=== PATIENT | male | born 1950 | race Caucasian/White ===

== ENCOUNTER → 2017-07-26 | Outpatient (CLI) | payer MEDICARE ==
[2017-07-26 13:43] LABS: ALT 33 U/L (21-72); AST 24 U/L (17-59); Cholesterol 95 mg/dL (<200); HDL Cholesterol 33 mg/dL (40-60); LDL Cholesterol,Calculated 49 mg/dL (0-99); Triglycerides 67 mg/dL (<150)
== END | disposition home or self-care (01) ==
LOC: LABWHC1 12:52
PROVIDERS: ATTEND Internal Medicine Interventional Cardiology
DX: E78.2 Mixed hyperlipidemia (principal)
CPT/HCPCS: 36415; 80061; 84450; 84460

== ENCOUNTER 2019-04-19 11:39 | Day surgery (SDC) | payer MEDICARE ==
[2019-01-16 09:18] VITALS: BMI 31.0
[~2019-04-19 11:39] MED LIST: LACTATED RINGERS 1,000 ML IV SCH; LIDOCAINE 1% (10MG/ML) FOR IV START INTRADERMA PRN
[2019-04-19 12:02] VITALS: TEMP 97.9
[2019-04-19] MEDS ORDERED: PROPOFOL 10 MG/ML 20 ML VIAL IV ONE (12:23)
--- NOTE | 2019-04-19 12:27 | P.GSHP ---
History of Present Illness H&P Date: 04/19/19 Chief Complaint: Colon cancer screening Patient here today for colonoscopy. Last colonoscopy about 4 years ago. That study showed a small polyp. Biopsies were benign. No adenoma. Patient with no bowel issues. No family history of colon cancer. Past Medical History Past Medical History: Coronary Artery Disease (CAD), Hypertension, Myocardial Infarction ([place]) Additional Past Medical History / Comment(s): Weaned off HTN Rx for few years. Last Myocardial Infarction Date:: 04/2011 History of Any Multi-Drug Resistant Organisms: None Reported Past Surgical History: Appendectomy, Coronary Bypass/CABG, Heart Catheterization, Heart Catheterization With Stent, Tonsillectomy Additional Past Surgical History / Comment(s): Triple CABG 2011, one cardiac stent, Colonoscopy Past Anesthesia/Blood Transfusion Reactions: No Reported Reaction Additional Past Anesthesia/Blood Transfusion Reaction / Comment(s): no family hx Date of Last Stent Placement:: 2011 Smoking Status: Never smoker - Past Family History Mother Family Medical History: Cancer Sister(s) Family Medical History: Cancer Medications and Allergies Home Medications Medication Instructions Recorded Confirmed Type Aspirin [Adult Low Dose Aspirin EC] 81 mg PO DAILY 11/18/15 04/19/19 History Rosuvastatin [Crestor] 5 mg PO DAILY 11/18/15 04/19/19 History Allergies Allergy/AdvReac Type Severity Reaction Status Date / Time No Known Allergies Allergy Verified 04/19/19 12:02 Surgical - Exam Vital Signs Temp Pulse Resp BP Pulse Ox 97.9 F 71 16 152/93 98 04/19/19 12:00 04/19/19 12:00 04/19/19 12:04/19/19 12:04/19/19 12:00 Physical exam: General: Well-developed, well-nourished HEENT: Normocephalic, sclerae nonicteric Abdomen: Nontender, nondistended Extremities: No edema Neuro: Alert and oriented Assessment and Plan (1) Colon cancer screening Narrative/Plan: Will proceed with colonoscopy at this time Current Visit: Yes Status: Acute Code(s): Z12.11 - ENCOUNTER FOR SCREENING FOR MALIGNANT NEOPLASM OF COLON SNOMED Code(s): 950678305
--- NOTE | 2019-04-19 12:43 | P.PCN ---
Date of Procedure: 04/19/19 Procedure(s) Performed: PREOPERATIVE DIAGNOSIS: Colon cancer screening POSTOPERATIVE DIAGNOSIS: Small rectal polyp PROCEDURE: Colonoscopy with cold biopsy ANESTHESIA: MAC SURGEON: Paulo Hughes M.D. SPECIMENS: Rectal polyp ENDOSCOPIC PROCEDURE: The patient was placed on the endoscopy table in the left decubitus position. The Olympus colonoscope was inserted into the anus and passed under direct visualization to the base of the cecum. The appendiceal orifice was visualized. From that point the scope was slowly withdrawn inspecting all surfaces carefully. There were no neoplastic inflammatory or polypoid lesions throughout the cecum, ascending, transverse, descending, and sigmoid colon. In the rectum a small polyp was seen and removed using the cold biopsy forceps. The remainder of the rectum was normal. There is no visible diverticulosis. Digital rectal examination was normal. The patient was taken to the recovery room in stable condition per anesthesia guidelines. RECOMMENDATIONS: Await biopsy results.
[2019-04-19 13:18] VITALS: BP 110/68; PULSE 68; RESP 18
== END 2019-04-19 13:20 | disposition home or self-care (01) ==
LOC: ORWHC2ENDO 11:39
PROVIDERS: ATTEND Surgery
DX: Z12.11 Encounter for screening for malignant neoplasm of colon (principal); D12.8 Benign neoplasm of rectum; I10 Essential (primary) hypertension; I25.10 Atherosclerotic heart disease of native coronary artery without angina pectoris; I25.2 Old myocardial infarction; E78.5 Hyperlipidemia, unspecified; Z86.010 Personal history of colon polyps; Z79.82 Long term (current) use of aspirin; Z79.899 Other long term (current) drug therapy; Z95.1 Presence of aortocoronary bypass graft; Z95.5 Presence of coronary angioplasty implant and graft; Z90.49 Acquired absence of other specified parts of digestive tract; Z90.89 Acquired absence of other organs; Z80.9 Family history of malignant neoplasm, unspecified
CPT/HCPCS: 88305; 45380; J2704

== ENCOUNTER 2020-08-29 06:57 | Day surgery (SDC) | payer MEDICARE ==
[2020-08-28 11:37] VITALS: BMI 29.8
[~2020-08-29 06:57] MED LIST changes: +ALPRAZolam 0.25 MG TAB PO PRN; +ALPRAZolam 0.5 MG TAB PO PRN; +ASPIRIN 325 MG TAB PO STA; +ATORVASTATIN 80 MG TAB PO STA; -LACTATED RINGERS 1,000 ML IV SCH; -LIDOCAINE 1% (10MG/ML) FOR IV START INTRADERMA PRN; +NITROGLYCERIN SL TABS 0.4 MG TAB SUBLINGUAL PRN; +SODIUM CHLORIDE 0.9% 1,000 ML in EMPTY BAG 1 BAG IV ONE
[2020-08-29 07:25] LABS: Basophils % (A) 1 %; Eosinophils # (A) 0.2 k/uL (0-0.7); Eosinophils % (A) 3 %; HCT 44.8 % (39.0-53.0); HGB 15.5 gm/dL (13.0-17.5); Lymphocytes % (A) 31 %; MCH 29.5 pg (25.0-35.0); MCHC 34.6 g/dL (31.0-37.0); MCV 85.3 fL (80.0-100.0); Mean Platelet Volume 7.8; Monocytes # (A) 0.4 k/uL (0-1.0); Monocytes % (A) 7 %; Neutrophils # (A) 3.5 k/uL (1.3-7.7); Neutrophils % (A) 56 %; Platelet Count 171 k/uL (150-450); RBC 5.26 m/uL (4.30-5.90); RDW 13.2 % (11.5-15.5); WBC 6.3 k/uL (3.8-10.6)
[2020-08-29 07:32] VITALS: RESP 18; TEMP 98.1
[2020-08-29 07:45] LABS: Calcium 9.2 mg/dL (8.4-10.2); Potassium 3.9 mmol/L (3.5-5.1)
[2020-08-29] MEDS ORDERED: LIDOCAINE 1% INJ 10MG/ML (20 ML MDV) ONE (09:13)
[2020-08-29] MEDS ORDERED: VERAPAMIL 2.5 MG/ML 2 ML AMP ONE (09:38)
[2020-08-29] MEDS ORDERED: fentaNYL (PF) 50 MCG/ML 2 ML AMP ONE (09:49)
[2020-08-29] MEDS ORDERED: MIDAZOLAM 2 MG/2 ML VIAL IV ONE (09:49)
[2020-08-29] MEDS ORDERED: fentaNYL (PF) 50 MCG/ML 2 ML AMP IV ONE (09:54)
[2020-08-29] MEDS ORDERED: LIDOCAINE 1% INJ 10MG/ML (20 ML MDV) SQ ONE (09:55)
[2020-08-29] MEDS ORDERED: RX INFO: IV CONTRAST WAS GIVEN 1 EACH MISC MISCELLANE PRN (10:22)
[2020-08-29] MEDS ORDERED: IOPAMIDOL-370 125ML BTL INJ ONE (10:26)
[2020-08-29] MEDS ORDERED: SODIUM CHLORIDE 0.9% 1,000 ML IV SCH (10:30)
--- NOTE | 2020-08-29 12:17 | CC ---
CARDIAC CATHETERIZATION REPORT DATE OF SERVICE: August 29, 2020. PERFORMING PHYSICIAN: Hunter Scott MD. PROCEDURE PERFORMED: 1. Selective left and right coronary angiogram. 2. RODRIGUES to LAD angiogram. 3. Right common femoral artery angiogram. INDICATION: Chest discomfort in this 70-year-old gentleman who is known to have coronary artery disease and prior coronary artery bypass grafting who underwent also in the past stenting of the left circumflex. APPROACH: Right common femoral artery. COMPLICATION: None. LEVEL OF SEDATION: Moderate with sedation length of 20 minutes. PROCEDURE DESCRIPTION: After obtaining an informed consent, the patient was brought to the cardiac cardiac catheterization technician. The right common femoral artery was cannulated using micropuncture technique, the micropuncture wire passed easily. Then I placed a 6-Welsh sheath there. I did selective right and left coronary angiogram using JL4 and JR4 catheters. Left heart catheterization was performed using 5-Welsh pigtail catheter. After that, I did RODRIGUES to LAD angiogram using an IM catheter. SELECTIVE CORONARY ANGIOGRAM: 1. The left main is angiographically normal. It bifurcates into left circumflex and left anterior descending artery. 2. The left circumflex is a large caliber vessel, it is a dominant vessel. The left circumflex has mild disease only. In the midportion, gives rise into an OM branch which has mild disease only and the circumflex distally bifurcates into PDA and PLV branches both appeared to be angiographically normal. 3. The LAD: The ostial LAD has a lesion appeared to be in the range of 50% and the proximal LAD has a lesion appeared to be in the range of 70%. The LAD distally has competitive flow from the RODRIGUES. 4. The right coronary artery is a medium caliber vessel. It is a nondominant vessel and appeared to have mild to moderate disease only. CORONARY BYPASS ANGIOGRAM: The RODRIGUES to LAD is patent. The RODRIGUES in the midportion has mild disease only. HEMODYNAMICS: The LVEDP was 10 to 12 mmHg without significant gradient across the aortic valve. CONCLUSION: 1. Severe single-vessel coronary artery disease involving the proximal LAD. The RODRIGUES to LAD is patent. 2. Mild disease involving the dominant left circumflex coronary artery. 3. Normal left main coronary artery. 4. Nondominant right coronary artery with mild disease only. 5. Normal LVEDP. POSTPROCEDURE MANAGEMENT: Medical treatment and follow up with the patient. MMODL / IJN: [id number] /
[2020-08-29 14:46] VITALS: BP 145/66; PULSE 65
== END 2020-08-29 15:41 | disposition home or self-care (01) ==
LOC: CATHCVL 06:57
PROVIDERS: ATTEND Internal Medicine Interventional Cardiology
DX: I25.10 Atherosclerotic heart disease of native coronary artery without angina pectoris (principal); E78.5 Hyperlipidemia, unspecified; I73.9 Peripheral vascular disease, unspecified; Z95.1 Presence of aortocoronary bypass graft
CPT/HCPCS: 93459; 80048; 85025; C1760; C1894; C1769 ×2; J2250; J2001; J3010; Q9967

== ENCOUNTER 2022-05-14 09:46 | Inpatient (IN) | payer MEDICARE ==
[2022-05-14 10:44] LABS: Basophils % (A) 1 %; Eosinophils # (A) 0.2 k/uL (0-0.7); Eosinophils % (A) 3 %; HCT 49.7 % (39.0-53.0); HGB 16.4 gm/dL (13.0-17.5); Lymphocytes # (A) 1.4 k/uL (1.0-4.8); Lymphocytes % (A) 25 %; MCH 28.7 pg (25.0-35.0); MCHC 33.1 g/dL (31.0-37.0); MCV 86.7 fL (80.0-100.0); Mean Platelet Volume 8.1; Monocytes # (A) 0.3 k/uL (0-1.0); Monocytes % (A) 6 %; Neutrophils # (A) 3.6 k/uL (1.3-7.7); Neutrophils % (A) 64 %; Platelet Count 168 k/uL (150-450); RBC 5.73 m/uL (4.30-5.90); WBC 5.6 k/uL (3.8-10.6)
[2022-05-14 10:55] LABS: Albumin 4.3 g/dL (3.5-5.0); Calcium 9.3 mg/dL (8.4-10.2); Magnesium 2.2 mg/dL (1.6-2.3); Potassium 4.5 mmol/L (3.5-5.1); Total Bilirubin 1.3 mg/dL (0.2-1.3); Total Protein 6.7 g/dL (6.3-8.2)
--- NOTE | 2022-05-14 10:56 | XR ---
EXAMINATION TYPE: XR chest 2V DATE OF EXAM: 05/14/2022 COMPARISON: 11/09/2014 INDICATION: Chest pain x1 day TECHNIQUE: Frontal and lateral views of the chest are obtained. FINDINGS: The heart size is normal. The pulmonary vasculature is normal. The lungs are clear. Sternotomy wires are in the midline from prior CABG the IMPRESSION: 1. No acute pulmonary process.
[2022-05-14 11:04] LABS: Partial Thromboplastin Time 20.7 sec (22.0-30.0); Prothrombin Time 10.8 sec (9.0-12.0)
--- NOTE | 2022-05-14 12:01 | ED ---
Chest Pain HPI - General Chief Complaint: Chest Pain Stated Complaint: CHEST PAIN Time Seen by Provider: 05/14/22 09:57 Source: patient, RN notes reviewed Mode of arrival: ambulatory Limitations: no limitations - History of Present Illness Initial Comments: 71-year-old male presents emergency Department with chief complaint of intermittent chest pain. Patient states pain has abnormal last couple days. Patient states he has had some recent episodes of dizziness. Patient's has significant cardiac history including triple bypass, cardiac stent after bypass. Patient states he sees Dr. Scott in the past. Patient denies feeling short of breath no leg pain or leg swelling. Denies any history of DVT or PE denies fevers chills no cough or cold like symptoms. - Related Data Home Medications Medication Instructions Recorded Confirmed Aspirin [Adult Low Dose Aspirin EC] 81 mg PO DAILY 11/18/15 05/14/22 Rosuvastatin [Crestor] 5 mg PO DAILY 11/18/15 05/14/22 Allergies Allergy/AdvReac Type Severity Reaction Status Date / Time No Known Allergies Allergy Verified 05/14/22 10:29 Review of Systems ROS Statement: Those systems with pertinent positive or pertinent negative responses have been documented in the HPI. ROS Other: All systems not noted in ROS Statement are negative. EKG Findings - EKG Comments: EKG Findings:: EKG performed at 10:00 sinus bradycardia with first-degree block rate of 57 SC 271 QRS 92 QT/QTC 429/423 - EKG Results: EKG: interpreted by GUERDA Past Medical History Past Medical History: Coronary Artery Disease (CAD), Hyperlipidemia, Hypertension, Myocardial Infarction ([place]), Prostate Disorder Additional Past Medical History / Comment(s): Weaned off HTN Rx for few years. enlarged prostate Last Myocardial Infarction Date:: 04/2011 History of Any Multi-Drug Resistant Organisms: None Reported Past Surgical History: Appendectomy, Coronary Bypass/CABG, Heart Catheterization, Heart Catheterization With Stent, Tonsillectomy Additional Past Surgical History / Comment(s): Triple CABG 2011, mult cardiac stent, Colonoscopy Past Anesthesia/Blood Transfusion Reactions: No Reported Reaction Additional Past Anesthesia/Blood Transfusion Reaction / Comment(s): . Date of Last Stent Placement:: 2011 Past Psychological History: No Psychological Hx Reported Smoking Status: Never smoker Past Alcohol Use History: None Reported Past Drug Use History: None Reported - Past Family History Mother Family Medical History: Cancer Sister(s) Family Medical History: Cancer General Exam Limitations: no limitations Course Vital Signs 05/14/22 05/14/22 05/14/22 09:52 10:41 12:08 Temperature 97.4 F L Pulse Rate 57 L 56 L 66 Respiratory 20 16 16 Rate Blood Pressure 161/90 150/84 174/94 O2 Sat by Pulse 98 95 98 Oximetry Chest Pain MDM - MDM Was pt. sent in by a medical professional or institution (, [facility], [employer], urgent care, hospital, or group home...) When possible be specific @ -[No] Did you speak to anyone other than the patient for history (EMS, parent, family, police, friend...)? What history was obtained from this source @ -[No] Did you review nursing and triage notes (agree or disagree)? Why? @ -[I reviewed and agree with nursing and triage notes] Were old charts reviewed (outside hosp., previous admission, EMS record, old EKG, old radiological studies, urgent care reports/EKG's, group home records)? Report findings @ -[Prior EKG and laboratory studies.] Differential Diagnosis (chest pain, altered mental status, abdominal pain women, abdominal pain men, vaginal bleeding, weakness, fever, dyspnea, syncope, headache, dizziness, GI bleed, back pain, seizure, CVA, palpatations, mental health, musculoskeletal)? @ -[Differential Chest Pain: Stable Angina, Unstable Angina, STEMI, NSTEMI Aortic Dissection, Pneumothorax, Musculoskeletal, Esophageal Spasm GERD, Cholecystitis, Pancreatitis, Zoster, this is not meant to be an all-inclusive list. e] EKG interpreted by me (3pts min.). @ -[As above] X-rays interpreted by me (1pt min.). @ -[Chest x-ray shows no acute cardiopulmonary process] CT interpreted by me (1pt min.). @ -[None done] U/S interpreted by me (1pt. min.). @ -[None done] What testing was considered but not performed or refused? (CT, X-rays, U/S, labs)? Why? @ -[None] What meds were considered but not given or refused? Why? @ -[None] Did you discuss the management of the patient with other professionals (professionals i.e. , [facility], [employer], lab, RT, psych nurse, social contact worker, cement gun operator, teacher, sergeant of officers, director of casework)? Give summary @ -[Dr. vincent for admission for cardiac rule out consult to cardiology] Was smoking cessation discussed for >3mins.? @ -[No] Was critical care preformed (if so, how long)? @ -[No] Were there social determinants of health that impacted care today? How? (Homelessness, low income, unemployed, alcoholism, drug addiction, transportation, low edu. Level, literacy, decrease access to med. care, intermediate, rehab)? @ -[No] Was there de-escalation of care discussed even if they declined (Discuss DNR or withdrawal of care, Hospice)? DNR status @ -[No] What co-morbidities impacted this encounter? (DM, HTN, Smoking, COPD, CAD, Cancer, CVA, ARF, Chemo, Hep., AIDS, mental health diagnosis, sleep apnea, morbid obesity)? @ -[CABG, CAD, hypertension] Was patient admitted / discharged? Hospital course, mention meds given and route, prescriptions, significant lab abnormalities, going to OR and other pertinent info. @ -[Admitted patient's initial workup including labs, EKG and chest x-ray shows no acute abnormality. Patient does have multiple risk factors patient be admitted for cardiac rule out.] Undiagnosed new problem with uncertain prognosis? @ -[No] Drug Therapy requiring intensive monitoring for toxicity (Heparin, Nitro, Insulin, Cardizem)? @ -[No] Were any procedures done? @ -[No] Diagnosis/symptom? @ -[Chest pain] Acute, or Chronic, or Acute on Chronic? @ -[Acute] Uncomplicated (without systemic symptoms) or Complicated (systemic symptoms)? @ -[Comp. Side effects of treatment? @ -[No] Exacerbation, Progression, or Severe Exacerbation? @ -[No] Poses a threat to life or bodily function? How? (Chest pain, [place], [place], pneumonia, PE, COPD, DKA, ARF, appy, cholecystitis, CVA, Diverticulitis, Homicidal, Suicidal, threat to staff... and all critical care pts) @yes patient has risk for cardiac arrest Disposition Clinical Impression: Chest pain Disposition: ADMITTED IP TO THIS HOSP Condition: Fair Time of Disposition: 12:30
[2022-05-14] MEDS ORDERED: NITROGLYCERIN SL TABS 0.4 MG TAB SUBLINGUAL PRN (12:25)
--- NOTE | 2022-05-14 16:12 | P.HPIM ---
History of Present Illness This is a pleasant 71 years old male with multiple medical problems including remote history of CABG for his coronary artery disease and remote history of stent placement that he follows up with Dr. Scott. He presents because of epi sodes of chest pain about 6-10 episodes yesterday and when this morning, each episode lasts only for 1-2 seconds as he describes, in the epigastrium, he got concerned and his advised him to come to emergency room. He denies dyspnea or coughing. No change in urine or bowel habits. No fever. He denies smoking alcohol or illicit drugs. His Vitas looks stable blood pressure was slightly elevated 174/94. He is mildly bradycardic and asymptomatic. He has an unremarkable CBC, INR, BMP, liver enzymes. Troponin is negative. BNP is 215. D-dimer is normal at 0.32. EKG showed normal sinus rhythm with no significant ST-T changes. QTC 423. Chest x-ray: No acute process Review of Systems Review of systems CONSTITUTIONAL: No fever, no malaise, no fatigue. HEENT: No recent visual problems or hearing problems. Denied any sore throat. CARDIOVASCULAR: No orthopnea, PND, no palpitations, no syncope. PULMONARY: No shortness of breath, no cough, no hemoptysis. GASTROINTESTINAL: No diarrhea, no nausea, no vomiting, no abdominal pain. Normoactive bowel sounds. NEUROLOGICAL: No headaches, no weakness, no numbness. HEMATOLOGICAL: Denies any bleeding or petechiae. GENITOURINARY: Denies any burning micturition, frequency, or urgency. MUSCULOSKELETAL/RHEUMATOLOGICAL: Denies any joint pain, swelling, or any muscle pain. ENDOCRINE: Denies any polyuria or polydipsia. Past Medical History Past Medical History: Coronary Artery Disease (CAD), Hyperlipidemia, Hypertension, Myocardial Infarction ([place]), Prostate Disorder Additional Past Medical History / Comment(s): Weaned off HTN Rx for few years. enlarged prostate Last Myocardial Infarction Date:: 04/2011 History of Any Multi-Drug Resistant Organisms: None Reported Past Surgical History: Appendectomy, Coronary Bypass/CABG, Heart Catheterizati on, Heart Catheterization With Stent, Tonsillectomy Additional Past Surgical History / Comment(s): Triple CABG 2011, mult cardiac stent, Colonoscopy Past Anesthesia/Blood Transfusion Reactions: No Reported Reaction Additional Past Anesthesia/Blood Transfusion Reaction / Comment(s): . Date of Last Stent Placement:: 2011 Past Psychological History: No Psychological Hx Reported Smoking Status: Never smoker Past Alcohol Use History: None Reported Past Drug Use History: None Reported - Past Family History Mother Family Medical History: Cancer Sister(s) Family Medical History: Cancer Medications and Allergies Home Medications Medication Instructions Recorded Confirmed Type Aspirin [Adult Low Dose Aspirin EC] 81 mg PO DAILY 11/18/15 05/14/22 History Rosuvastatin [Crestor] 5 mg PO DAILY 11/18/15 05/14/22 History Allergies Allergy/AdvReac Type Severity Reaction Status Date / Time No Known Allergies Allergy Verified 05/14/22 10:29 Physical Exam Vitals: Vital Signs Temp Pulse Resp BP Pulse Ox 05/14/22 12:08 66 16 174/94 98 05/14/22 10:41 56 L 16 150/84 95 05/14/22 09:52 97.4 F L 57 L 20 161/90 98 Intake and Output 05/13/22 05/14/22 05/14/22 22:59 06:59 14:59 Other: Weight 92.986 kg GENERAL: The patient is alert and oriented x3, not in any acute distress. Well developed, well nourished. HEENT: Pupils are round and equally reacting to light. EOMI. No scleral icterus. No conjunctival pallor. Normocephalic, atraumatic. No pharyngeal erythema. No thyromegaly. CARDIOVASCULAR: S1 and S2 present. No murmurs, rubs, or gallops. PULMONARY: Chest is clear to auscultation, no wheezing or crackles. ABDOMEN: Soft, nontender, nondistended, normoactive bowel sounds. No palpable organomegaly. MUSCULOSKELETAL: No joint swelling or deformity. EXTREMITIES: No cyanosis, clubbing, or pedal edema. NEUROLOGICAL: Gross neurological examination did not reveal any focal deficits. SKIN: No rashes. no petechiae. Results CBC & Chem 7: 05/14/22 10:09 05/14/22 10:09 Labs: Abnormal Lab Results - Last 24 Hours (Table) 05/14/22 Range/Units 10:09 APTT 20.7 L (22.0-30.0) sec Assessment and Plan Assessment: Chest pain, rule out cardiac causes. D-dimer is -0.32 History of coronary artery disease status post CABG and stent placement Hypertension, uncontrolled on admission Hyperlipidemia Mild asymptomatic bradycardia Plan: Cardiology consult At [facility] for better blood pressure controlled Telemetry monitoring Serial troponin Continue with aspirin Labs and medication were reviewed.. Continue same treatment. Continue with symptomatic treatment. Resume home medication. Monitor labs and vitals. DVT and GI prophylaxis. Further recommendations as per clinical course of the patient DVT prophylaxis: Subcutaneous heparin GI Prophylaxis: Pepcid PT/OT: Pending Prognosis is guarded
[2022-05-14] MEDS: amLODIPine 5 MG TAB PO SCH (16:58)
[2022-05-14 18:07] LABS: Appearance,Urine Clear (Clear); Bilirubin,Urine Negative (Negative); Blood,Urine Negative (Negative); Color,Urine Light Yellow; Glucose,Urine (UA) Negative (Negative); Ketones,Urine Negative (Negative); Leukocyte Esterase,Urine Negative (Negative); Nitrite,Urine Negative (Negative); Protein,Urine Negative (Negative); Specific Gravity,Urine 1.012 (1.001-1.035); Urobilinogen,Urine <2.0 mg/dL (<2.0)
[2022-05-15] MEDS: amLODIPine 5 MG TAB PO SCH (08:39)
[2022-05-15] MEDS ORDERED: ASPIRIN 325 MG TAB PO SCH (09:00)
[2022-05-15] MEDS ORDERED: ATORVASTATIN 10 MG TAB PO SCH (09:00)
[2022-05-15] MEDS ORDERED: ASPIRIN 81 MG PO SCH (09:00)
--- NOTE | 2022-05-15 09:25 | CA ---
Transthoracic Echo Report Name: Bebeto Lacey Age: 71 Gender: M : 1950 Exam Date: 05/14/2022 13:03 Exam Location: [facility] Ht (in): 70 Wt (lb): 205 Ordering Physician: Simeon Ordonez Attending/Referring Phys: Dining Room Manager Leydi Ferrer RDCS Procedure CPT: Indications: Chest Pain Cardiac Hx: CABG Technical Quality: Fair Contrast 1: Total Dose (mL): Contrast 2: Total Dose (mL): MEASUREMENTS (Male / Female) Normal Values 2D ECHO LA Volume 49.7 cm??? 18 - 58 / 22 - 52 cm??? M-MODE Aortic Root Diameter MM 3.6 cm AV Cusp Separation MM 1.9 cm DOPPLER AV Peak Velocity 89.0 cm/s AV Peak Gradient 3.2 mmHg LVOT Peak Velocity 73.2 cm/s LVOT Peak Gradient 2.1 mmHg MV Area PHT 4.1 cm??? Mitral E Point Velocity 67.5 cm/s Mitral A Point Velocity 49.2 cm/s Mitral E to A Ratio 1.4 MV Deceleration Time 186.7 ms TR Peak Velocity 244.0 cm/s TR Peak Gradient 23.8 mmHg PV Peak Velocity 45.2 cm/s PV Peak Gradient 0.8 mmHg FINDINGS Left Ventricle Left ventricular hypertrophy. Left ventricular cavity size normal. Abnormal left ventricular diastolic filling pattern. Left ventricular ejection fraction is estimated at 55-60 %. Right Ventricle Mild right ventricular dilatation. Mildly reduced right ventricular global systolic function. Right ventricular systolic pressure within normal limits. Right Atrium Borderline right atrial dilatation. Left Atrium Normal left atrial size. Mitral Valve Mild mitral regurgitation. Aortic Valve Trileaflet aortic valve. Mild aortic regurgitation. No aortic stenosis. Tricuspid Valve Mild tricuspid regurgitation. Pulmonic Valve Moderate pulmonic regurgitation. Pericardium No pericardial or pleural effusion. Aorta Mild aortic dilatation at the level of the sinuses of valsalva (root). Normal size proximal ascending aorta. CONCLUSIONS Left ventricular ejection fraction 55-60% Mildly increased left ventricular wall thickness Mild right ventricular dilation Mild mitral regurgitation Mild aortic regurgitation Mild tricuspid regurgitation Moderate pulmonic regurgitation Previewed by: Dr. Suhas Epperson DO (Electronically Signed) Final Date: 15 May 2022 09:25
--- NOTE | 2022-05-15 09:28 | P.CRDCN ---
History of Present Illness Consult date: 05/14/22 History of present illness: HISTORY OF PRESENT ILLNESS: This is a 71-year-old male with a past medical history significant for coronary artery disease with previous CABG and stenting, hyperlipidemia, and former nicotine dependence. Patient follows in the office with Dr. Scott. We have been asked to see the patient in consultation for chest pain. Patient examined at the bedside. patient states over the last couple days he has been having some i ntermittent episodes of chest pain. He states yesterday he had about 6-10 episodes of pain that felt like pinpricks. He states he has never had this feeling before so he decided to come to the emergency room for further evaluation. He denied any shortness of breath. Denied any nausea or vomiting. He states in the past when he has had his [place] he had pain in his arms which she has not had this time. He currently denies any chest pain at time of examination. Vital signs are stable. * EKG reveals sinus mechanism with no signs of acute ischemia * Chest xray negative for acute process * Laboratory data: WBC 5.6. Hemoglobin 16.4. Platelet count 168. D-dimer 0.32. Sodium 140. Potassium 4.5. BUN 19. Creatinine 1.01. ProBNP 215 * Current home cardiac medications include aspirin 81 mg daily and Crestor 5 mg daily * Most recent echocardiogram obtained in December 2021 revealed normal ejection fraction, mild MR, aortic sclerosis * Patient underwent Lexiscan stress test in July 2020 revealing evidence of reversible defect involving the basal anterior wall as well as the basal lateral wall of the left ventricle. * Patient underwent 3 vessel CABG in 2011 with RODRIGUES to LAD, VGRI, VGOM1 * Patient underwent stenting of the circumflex in October 2011 * Cardiac catheterization history: August 2020 revealing severe single-vessel coronary artery disease involving the proximal LAD. RODRIGUES to LAD is patent. Mild disease involving the dominant left circumflex coronary artery. Normal left main coronary artery. Nondominant right coronary artery with mild disease only. Normal LVEDP. Medical management was recommended. REVIEW OF SYSTEMS: At the time of my exam: CONSTITUTIONAL: Denies fever or chills. HEENT: Denies blurred vision, vision changes, or eye pain. Denies hemoptysis CARDIOVASCULAR: Denies chest pain. Denies orthopnea. Denies PND. Denies palpi tations RESPIRATORY: Denies shortness of breath. GASTROINTESTINAL: Denies abdominal pain. Denies nausea or vomiting. HEMATOLOGIC: Denies bleeding disorders. GENITOURINARY: Denies any blood in urine. SKIN: Denies pruitis. Denies rash. PHYSICAL EXAM: VITAL SIGNS: Reviewed. GENERAL: Well-developed in no acute distress. HEENT: Head is normocephalic. Pupils are equal, round. Sclerae anicteric. Mucous membranes of the mouth are moist. Neck supple. No JVD or thyromegaly LUNGS: Respirations even and unlabored. Lungs essentially clear to auscultation bilaterally. HEART: Regular rate and rhythm. S1 and S2 heard. ABDOMEN: Soft. Nondistended. Nontender. EXTREMITIES: Normal range of motion. No clubbing or cyanosis. Peripheral pulses intact. No lower extremity edema NEUROLOGIC: Awake and alert. Oriented x 3. ASSESSMENT: Chest pain Coronary artery disease with previous three-vessel CABG in 2011, with subsequent stenting to the circumflex in October 2011 Hyperlipidemia Former nicotine dependence PLAN: No need to repeat echocardiogram as this was performed in December 2021 Resume home cardiac medications Patient to undergo stress echo today If negative, the patient may be discharged home today from a cardiac standpoint Nurse practitioner note has been reviewed by physician. Signing provider agrees with the documented findings, assessment, and plan of care. Past Medical History Past Medical History: Coronary Artery Disease (CAD), Hyperlipidemia, H ypertension, Myocardial Infarction ([place]), Prostate Disorder Additional Past Medical History / Comment(s): Weaned off HTN Rx for few years. enlarged prostate Last Myocardial Infarction Date:: 04/2011 History of Any Multi-Drug Resistant Organisms: None Reported Past Surgical History: Appendectomy, Coronary Bypass/CABG, Heart Catheterization, Heart Catheterization With Stent, Tonsillectomy Additional Past Surgical History / Comment(s): Triple CABG 2011, mult cardiac stent, Colonoscopy Past Anesthesia/Blood Transfusion Reactions: No Reported Reaction Additional Past Anesthesia/Blood Transfusion Reaction / Comment(s): . Date of Last Stent Placement:: 2011 Past Psychological History: No Psychological Hx Reported Smoking Status: Never smoker Past Alcohol Use History: None Reported Past Drug Use History: None Reported - Past Family History Mother Family Medical History: Cancer Sister(s) Family Medical History: Cancer Medications and Allergies Home Medications Medication Instructions Recorded Confirmed Type Aspirin [Adult Low Dose Aspirin EC] 81 mg PO DAILY 11/18/15 05/14/22 History Rosuvastatin [Crestor] 5 mg PO DAILY 11/18/15 05/14/22 History Allergies Allergy/AdvReac Type Severity Reaction Status Date / Time No Known Allergies Allergy Verified 05/14/22 10:29 Physical Exam Vitals: Vital Signs Temp Pulse Resp BP Pulse Ox 05/14/22 12:08 66 16 174/94 98 05/14/22 10:41 56 L 16 150/84 95 05/14/22 09:52 97.4 F L 57 L 20 161/90 98 Intake and Output 05/13/22 05/14/22 05/14/22 22:59 06:59 14:59 Other: Weight 92.986 kg Results 05/14/22 10:09 05/14/22 10:09 Cardiac Enzymes 05/14/22 05/14/22 Range/Units 10:09 10:09 AST 36 (17-59) U/L Troponin I <0.012 (0.000-0.034) ng/mL Coagulation 05/14/22 Range/Units 10:09 PT 10.8 (9.0-12.0) sec APTT 20.7 L (22.0-30.0) sec CBC 05/14/22 Range/Units 10:09 WBC 5.6 (3.8-10.6) k/uL RBC 5.73 (4.30-5.90) m/uL Hgb 16.4 (13.0-17.5) gm/dL Hct 49.7 (39.0-53.0) % Plt Count 168 (150-450) k/uL Comprehensive Metabolic Panel 05/14/22 Range/Units 10:09 Sodium 140 (137-145) mmol/L Potassium 4.5 (3.5-5.1) mmol/L Chloride 106 (98-107) mmol/L Carbon Dioxide 26 (22-30) mmol/L BUN 19 (9-20) mg/dL Creatinine 1.01 (0.66-1.25) mg/dL Glucose 86 (74-99) mg/dL Calcium 9.3 (8.4-10.2) mg/dL AST 36 (17-59) U/L ALT 27 (4-49) U/L Alkaline Phosphatase 54 (38-126) U/L Total Protein 6.7 (6.3-8.2) g/dL Albumin 4.3 (3.5-5.0) g/dL Current Medications Generic Name Dose Route Start Last Admin Trade Name Freq PRN Reason Stop Dose Admin Aspirin 325 mg 05/15/22 09:00 Aspirin 325 Mg Tab PO DAILY [facility] Atorvastatin Calcium 10 mg 05/15/22 09:00 Atorvastatin 10 Mg Tab PO DAILY [facility] Nitroglycerin 0.4 mg 05/14/22 12:25 Nitroglycerin Sl Tabs 0.4 Mg Tab SUBLINGUAL Q5M PRN Chest Pain Intake and Output 05/13/22 05/14/22 05/14/22 22:59 06:59 14:59 Other: Weight 92.986 kg Patient Weight 05/15/22 06:59 Weight 92.986 kg 05/14/22 10:09 05/14/22 10:09
[2022-05-15 12:00] LABS: Chol/HDL Ratio 2.93 Ratio; VLDL Calculation 15.88 mg/dL (5.00-40.00)
[2022-05-15 12:22] VITALS: BMI 29.4
--- NOTE | 2022-05-15 13:24 | CA ---
Stress Echo Report Bebeto Lacey Age: 71 Gender: M : 1950 Exam Date: 05/15/2022 10:14 Exam Location: [place] [facility] Ht (in): 70 Wt (lb): 205 Ordering Physician: Carol Siu Referring Physician: [id number] Service Representative: Carolann Ma RDCS Technologist Procedure CPT: Indication: CP ICD-9 Codes: Rhythm: Patient History: Atypical angina, Post CABG, Old [place], Family history, Hypertension Cardiac Medications: Medications in past 24 hours: Contrast: Stress Results Protocol: Troy Total dose(mL): Exercise Duration (min:sec): 9:[address] Depression (mm): Angina Score: Rojas Score: METS: 10.5 Resting HR: 77 Resting BP: 151 / 80 Peak HR: 145 Peak BP: 202 / 75 Max Predicted HR: 151 96 % Max Predicted HR Target HR: 128 Double Product: [id number] Stress Summary: BP Response: Normal Reason for Termination: MAX EXERTION/TARGET HR Cardiac Symptoms: NO SYMPTOMS ECG Analysis Resting ECG: Stress ECG: Arrhythmia: Echo Analysis Resting Echo: Peak Echo Analysis: MEASUREMENTS (Male/Female) Normal Values CONCLUSIONS Patient underwent exercise stress echo with a Troy protocol treadmill stress test. Patient exercised into Stage 3 for a total of 9 minutes reaching a total of 10.5 METS. Patient's maximum heart rate was 145 which represented 96% age-predicted maximum heart rate. Stress EKG portion: At baseline patient's EKG showed normal sinus rhythm, normal axis, nonspecific minimal 0.[address] depressions in the inferior and lateral leads. At peak exercise, EKG showed mild accentuation of baseline EKG abnormalities. Stress echo portion: 2-D echocardiogram was performed in the parasternal long, personal short, apical 2 and apical four-chamber views at rest, peak exercise and in recovery. At baseline, echocardiogram showed left ventricular ejection fraction 55% without wall motion abnormalities. With peak exercise, echocardiogram shows improvement in left ventricular ejection fraction, increase contractility, decrease in left ventricular end systolic dimension without wall motion abnormalities consistent with a normal response to exercise. Conclusions: 1. Nonspecific stress EKG portion secondary baseline EKG abnormalities 2. Normal stress echo response to exercise without evidence of inducible ischemia. 3. Good exercise capacity. Dr. Suhas Epperson DO (Electronically Signed) Final Date: 15 May 2022 13:24
[2022-05-15 15:38] VITALS: BP 143/77; PULSE 63; RESP 18; TEMP 97.7
--- NOTE | 2022-05-15 23:30 | P.DS ---
Providers Date of admission: 05/15/22 06:12 Attending physician: Yogesh Marmolejo Consults: 05/14/22 12:25 Consult Physician Urgent Consulting Provider: Hunter Scott Consult Reason/Comments: chest pain Do you want consulting provider notified?: Yes Primary care physician: Yogesh Marmolejo Hospital Course: Diagnoses: Chest pain, cardiac causes are ruled out with negative stress test. D-dimer is -0.32. Resolved upon discharge History of coronary artery disease status post CABG and stent placement Hypertension, uncontrolled on admission Hyperlipidemia Mild asymptomatic bradycardia Hospital course: This is a pleasant 71 years old male with multiple medical problems including remote history of CABG for his coronary artery disease and remote history of stent placement that he follows up with Dr. Scott. He presents because of episodes of chest pain about 6-10 episodes yesterday and when this morning, each episode lasts only for 1-2 seconds as he describes, in the epigastrium, he got concerned and his advised him to come to emergency room. Chest pain and epigastric pain resolved, patient today is completely asymptomatic as he states. Stress test negative and Cardiology team cleared him for discharge. Problems and management plan were discussed with the patient and he verbalized understanding and acceptance Patient was found stable and can be discharged home in guarded prognosis however he needs follow-up as an outpatient. Patient was instructed to follow up with PCP Dr. Marmolejo within one week and patient agrees Patient was instructed to follow up with his jelly maker Dr. Reyes in 1 week and he agrees Physical exam Gen: patient is a AAOx3, no distress CVS: S1-S2, RRR, no murmur Lungs: B/L CTA, no wheezing Abdomen: soft, no distention, no tenderness, positive bowel sounds Extremity: no leg edema or induration Time spent more than 35 minutes Patient Condition at Discharge: Fair Plan - Discharge Summary Discharge Rx Participant: No New Discharge Prescriptions: New amLODIPine [Norvasc] 5 mg PO DAILY #30 tab Continue Rosuvastatin [Crestor] 5 mg PO DAILY Aspirin [Adult Low Dose Aspirin EC] 81 mg PO DAILY Discharge Medication List Aspirin [Adult Low Dose Aspirin EC] 81 mg PO DAILY 11/18/15 [History] Rosuvastatin [Crestor] 5 mg PO DAILY 11/18/15 [History] amLODIPine [Norvasc] 5 mg PO DAILY #30 tab 05/15/22 [Rx] Follow up Appointment(s)/Referral(s): Hunter Scott MD [STAFF PHYSICIAN] - 1 Week (patient to call office for follow up.) Yogesh Marmolejo DO [Primary Care Provider] - 1-2 days Patient Instructions/Handouts: Chest Pain (DC) Activity/Diet/Wound Care/Special Instructions: heart healthy diet activity is restricted till you see your doctor Discharge Disposition: HOME SELF-CARE
== END 2022-05-15 16:35 | disposition home or self-care (01) | DRG 313 ==
LOC: EC 09:46 → 6NMEDSUR 12:26 → OBSVTOIN 05-15 06:12
PROVIDERS: ADMIT Family Medicine; ATTEND Family Medicine
DX: R07.9 Chest pain, unspecified (principal); E78.5 Hyperlipidemia, unspecified; I10 Essential (primary) hypertension; I25.10 Atherosclerotic heart disease of native coronary artery without angina pectoris; I25.2 Old myocardial infarction; Z79.82 Long term (current) use of aspirin; Z79.899 Other long term (current) drug therapy; Z87.891 Personal history of nicotine dependence; Z95.1 Presence of aortocoronary bypass graft; Z95.5 Presence of coronary angioplasty implant and graft; N40.0 Benign prostatic hyperplasia without lower urinary tract symptoms; R00.1 Bradycardia, unspecified
CPT/HCPCS: 36415; 71046; 80053; 80061; 81003; 83735; 83880; 84484; 85025; 85379; 85610; 85730; 93005; 93306; 93351; 94760